=== PATIENT | male | born 1990 | race Asian ===

== ENCOUNTER 2017-10-01 20:27 | Emergency (ER) | payer MEDICAID, OTHER ==
[~2017-10-01] VITALS: Ht 175.3 cm; Wt 136.4 kg
[2017-10-01 20:32] VITALS: BP 122/81
[2017-10-01] MEDS ORDERED: DIAZEPAM 5 MG TABLET PO ONE (21:30)
[2017-10-01] MEDS ORDERED: HYDROcodone/APAP 5/325 TABLET PO ONE (21:30)
[2017-10-01] MEDS ORDERED: KETOROLAC 30 MG/1 ML IM ONE (21:30)
[2017-10-01] MEDS ORDERED: PLEASE ENTER ALLERGIES MC SCH (21:30)
[2017-10-01] MEDS ORDERED: DIAZEPAM 5 MG TABLET ONE (22:04)
[2017-10-01] MEDS ORDERED: KETOROLAC 30 MG/1 ML ONE (22:05)
[2017-10-01] MEDS ORDERED: HYDROcodone/APAP 5/325 TABLET ONE (22:05)
[2017-10-01 22:20] LABS: MICROSCOPIC INDICATED
[2017-10-01 22:31] LABS: CULTURE INDICATED? NO
== END 2017-10-01 22:50 | disposition home or self-care (01) ==
LOC: ED 22:38
DX: M54.6 Pain in thoracic spine (principal)
CPT/HCPCS: 72072; 72110; 81001; 96372; 99285; J1885

== ENCOUNTER 2019-06-16 06:52 | Emergency (ER) | payer MEDICAID ==
[~2019-06-16] VITALS: Ht 180.3 cm; Wt 120.0 kg
[~2019-06-16 06:52] MED LIST: NAPR220C2 PO
[2019-06-16 06:59] VITALS: BP 108/65
--- NOTE | 2019-06-16 07:14 | NUR ---
PT WITH PAIN IN R ANKLE AND FOOT BEGINNING LAST NIGHT, PT STAES HE HAS A HX OF GOUT ALTHOUGH DOES NOT TAKE MEDICATION FOR IT. PT STATES HE TOOK IBU THIS AM APPROX [id number].
[2019-06-16] MEDS ORDERED: KETOROLAC 30 MG/1 ML IM ONE (07:30)
[2019-06-16] MEDS ORDERED: KETOROLAC 30 MG/1 ML ONE (07:47)
== END 2019-06-16 08:20 | disposition home or self-care (01) ==
LOC: ED 08:14
DX: M10.071 Idiopathic gout, right ankle and foot (principal); E66.01 Morbid (severe) obesity due to excess calories; Z68.41 Body mass index [BMI] 40.0-44.9, adult
CPT/HCPCS: 96372; 99283; J1885

== ENCOUNTER 2019-07-19 02:43 | Emergency (ER) | payer MEDICAID ==
[~2019-07-19] VITALS: Ht 180.3 cm; Wt 120.0 kg
[2019-07-19] MEDS ORDERED: HYDROcodone/APAP 5/325 TABLET PO STA (03:32)
[2019-07-19] MEDS ORDERED: KETOROLAC 30 MG/1 ML ONE (03:41)
[2019-07-19] MEDS ORDERED: HYDROcodone/APAP 5/325 TABLET ONE (03:42)
[2019-07-19] MEDS ORDERED: KETOROLAC 30 MG/1 ML IM ONE (04:00)
[2019-07-19] MEDS ORDERED: COLCHICINE 0.6 MG CAPSULE ONE (04:15)
[2019-07-19] MEDS ORDERED: COLCHICINE 0.6 MG CAPSULE PO ONE (04:30)
[2019-07-19 05:42] VITALS: BP 112/60
== END 2019-07-19 05:58 | disposition home or self-care (01) ==
LOC: ED 03:17
DX: M13.132 Monoarthritis, not elsewhere classified, left wrist (principal); M10.032 Idiopathic gout, left wrist; F17.200 Nicotine dependence, unspecified, uncomplicated
CPT/HCPCS: 73110; 96372; 99283; J1885